=== PATIENT | male | born 1945 | race Caucasian/White ===

== ENCOUNTER 2017-12-02 17:53 | Emergency (ER) | payer MEDICARE, OTHER ==
[2017-12-02] MEDS ORDERED: Bacitracin Oint 1 GM U/D Packet TOP ONE (18:50)
[2017-12-02] MEDS ORDERED: Diphtheria,Pertussis(Acell),Tetanus Vaccine 0.5 ML SDV IM ONE (18:50)
--- NOTE | 2017-12-02 19:13 | EDM.PDOC ---
ED HPI GENERAL MEDICAL PROBLEM - General Chief Complaint: Laceration Stated Complaint: CUT FINGER Time Seen by Provider: 12/02/17 18:29 Source of Information: Reports: Patient History Limitations: Reports: No Limitations - History of Present Illness INITIAL COMMENTS - FREE TEXT/NARRATIVE: This man was at a local convenience store buying some milk. He opened the cooler and when he was removing the milk it slipped and as he grabbed at it he hit his right 5th finger against a sharp metal edge, suffering a small laceration to the fingetip. Store personnel placed a bandage. Last tetanus unknown. - Related Data Allergies Allergy/AdvReac Type Severity Reaction Status Date / Time No Known Allergies Allergy Verified 12/02/17 18:58 Home Meds: Home Meds Finasteride 5 mg PO DAILY 12/02/17 [History] Lisinopril 10 mg PO DAILY 12/02/17 [History] Meloxicam 15 mg PO DAILY 12/02/17 [History] Metoprolol Tartrate 25 mg PO DAILY 12/02/17 [History] Tamsulosin HCl [Flomax] 0.4 mg PO DAILY 12/02/17 [History] Past Medical History HEENT History: Reports: Impaired Vision Cardiovascular History: Reports: High Cholesterol, Hypertension Genitourinary History: Reports: BPH Musculoskeletal History: Reports: Fracture Other Musculoskeletal History: elbow - Infectious Disease History Infectious Disease History: Reports: Chicken Pox, Measles, Mumps - Past Surgical History GI Surgical History: Reports: Colonoscopy Social & Family History - Tobacco Use Smoking Status *Q: Never Smoker Second Hand Smoke Exposure: No - Caffeine Use Caffeine Use: Reports: Coffee - Alcohol Use Days Per Week of Alcohol Use: 0 - Recreational Drug Use Recreational Drug Use: No ED ROS GENERAL - Review of Systems Review Of Systems: ROS reveals no pertinent complaints other than HPI. ED EXAM, SKIN/RASH Exam: See Below Exam Limited By: No Limitations General Appearance: Alert, WD/WN, No Apparent Distress Extremities: Other (Right 5th finger. a small lflap-like laceration to the tip and extending proximally along the nail margin. About 5 mm wide and 5 mm long. Does not need suturing.) Course - Vital Signs Last Recorded V/S: Last Vital Signs Temp 36.1 C 12/02/17 18:23 Pulse 58 L 12/02/17 18:23 Resp 16 12/02/17 18:23 BP 140/95 H 12/02/17 18:23 Pulse Ox 98 12/02/17 18:23 - Orders/Labs/Meds Orders: Active Orders 24 hr Category Date Time Status Vaccines to be Administered [RC] PER UNIT ROUTINE Care 12/02/17 18:50 Active Meds: Medications Discontinued Medications Generic Name Dose Route Start Last Admin Trade Name Laisha PRN Reason Stop Dose Admin Bacitracin 1 dose 12/02/17 18:50 Bacitracin Oint 1 Gm TOP 12/02/17 18:51 ONETIME ONE Diphtheria/Tetanus/Acell Pertussis 0.5 ml 12/02/17 18:50 Adacel IM 12/02/17 18:51 .ONCE ONE - Re-Assessments/Exams Free Text/Narrative Re-Assessment/Exam: 12/02/17 19:12 Wound was cleaned, Bacitracin and dressing applied. Received Adacel. Departure - Departure Time of Disposition: 19:13 Disposition: Home, Self-Care 01 Condition: Fair Clinical Impression: Finger laceration - Discharge Information Referrals: PCP,None [Primary Care Provider] - Additional Instructions: Clean the wound with soap and water daily. Apply a dab of antibiotic ointment and cover with a dressing. Repeat daily. It should heal quickly. watch for signs of infection. - My Orders Last 24 Hours: My Active Orders 12/02/17 18:50 Vaccines to be Administered [RC] PER UNIT ROUTINE - Assessment/Plan Last 24 Hours: My Active Orders 12/02/17 18:50 Vaccines to be Administered [RC] PER UNIT ROUTINE
== END 2017-12-02 19:30 | disposition home or self-care (01) ==
LOC: JP.ED 17:53
DX: S61.216A Laceration without foreign body of right little finger without damage to nail, initial encounter (principal); I10 Essential (primary) hypertension; Z23 Encounter for immunization; Z79.899 Other long term (current) drug therapy; W22.8XXA Striking against or struck by other objects, initial encounter
CPT/HCPCS: 90471; 90715; 99283-25